=== PATIENT | male | born 1985 | race Caucasian/White ===

== ENCOUNTER 2025-01-01 19:50 | Emergency (ER) | payer BC, SELFPAY ==
[2025-01-01 19:54] VITALS: BP 155/86
[2025-01-01 20:03] VITALS: BP 142/49
[2025-01-01 20:17] LABS: % Basophils 0.8 % (0-2); % Eosinophils 1.5 % (0-6); % Immature Granulocytes 0.2 % (0-0.5); % Monocytes 7.4 % (1.7-9.3); % Neutrophils 57.1 % (42.2-75.2); Absolute Basophils 0.1 10^3/uL (0-0.2); Absolute Eosinophils 0.1 10^3/uL (0-0.7); Absolute Lymphocytes 2.2 10^3/uL (1.2-3.4); Absolute Monocytes 0.5 10^3/uL (0.1-0.6); Absolute Neutrophils 3.7 10^3/uL (1.4-6.5); Hematocrit 39.4 % (39.0-52.0); Hemoglobin 14.1 g/dL (13.0-18.0); Mean Corp Hgb Conc. 35.8 g/dL (33.0-37.0); Mean Corpuscular Hgb 29.5 pg (27.0-31.0); Mean Corpuscular Volume 82.4 fL (80.0-94.0); Mean Platelet Volume 9.8 fL (7.4-10.4); Nucleated Red Blood Cells % 0 % (-); Platelet Count 245 10^3/uL (130-400); Red Blood Cell Count 4.78 10^6/uL (4.70-6.10); Red Cell Dist. Width 11.9 % (11.5-14.5); White Blood Cell Count 6.5 10^3/uL (4.8-10.8)
[2025-01-01 20:49] LABS: ALT (SGPT) 25 U/L (0-50); AST (SGOT) 25 U/L (17-59); Albumin 5.1 g/dl (3.5-5.0); Alkaline Phosphatase 46 U/L (38-126); Blood Urea Nitrogen 18 mg/dl (9-20); Calcium 9.7 mg/dl (8.4-10.2); Carbon Dioxide 25 mmol/L (22-30); Chloride 107 mmol/L (98-107); Glucose 121 mg/dl (70-99); Potassium 3.9 mmol/L (3.5-5.1); Sodium 141 mmol/L (135-145); Total Bilirubin 0.9 mg/dl (0.2-1.3); Total Protein 7.5 g/dl (6.3-8.2); eGFR > 60.00
[2025-01-01 21:00] VITALS: BP 131/65
[2025-01-01 21:01] LABS: Troponin I < 0.012 ng/ml
[2025-01-01 21:42] VITALS: BMI 26.2
--- NOTE | 2025-01-01 21:49 | ED.GENMED ---
History of Present Illness
General
Chief Complaint: Chest Pain
Time Seen by Provider: 01/01/25 20:44
History of Present Illness
History of Present Illness:
Patient is a 39-year-old male with history of hyperlipidemia presenting to the emergency department chest pain. Patient states at 6:30 PM he was cleaning up after dinner when he developed left-sided chest pressure. 15 minutes later started to
radiate down his arm and he had tingling sensation. He then came to the emergency department. Since then the chest pressure has resolved and the tingling has improved. He states that just feels off currently. No shortness of breath. No
hemoptysis leg swelling history of blood clots. No family history of cardiac disease. The pain was not exertional. He states that occasionally he has had chest pressure before but it resolves within 15 to 20 minutes. The chest pressure Profore
has never been exertional. He has never seen cardiology.
Phy Exam
Physical Exam
Physical Exam:
GENERAL: in no acute distress
HEENT: normocephalic, extraocular movements intact, moist oral mucosa
NECK: normal inspection
RESPIRATORY: no respiratory distress, clear to auscultation bilaterally
CARDIOVASCULAR: regular rate and rhythm, 2+ radial pulses bilaterally
ABDOMEN/: soft, non-distended, non-tender to palpation, no rebound or guarding
EXTREMITIES: non-tender, no edema/swelling
NEUROLOGIC: awake and alert, moves all extremities, normal sensation bilateral upper extremities,
SKIN: warm
Scores
Heart Score for Chest Pain Patients
STEMI patient?: Not applicable
Course
Orders/Labs/Results
Orders:
Orders
01/01/25 19:50
Electrocardiogram (*1) Urgent
Reason for Study: Chest Pain
EKG- Treatment ONCE
01/01/25 20:10
Complete Blood Count/With Diff Urgent
Comprehensive Metabolic Panel Urgent
Troponin I Urgent
01/01/25 20:45
EKG- Treatment ONCE
01/01/25 21:52
CR Chest - 2 Views Urgent
Comment:
Reason For Exam: chest pain
01/01/25 23:00
Electrocardiogram (*1) Urgent
Reason for Study: Chest Pain
01/01/25 23:10
Troponin I Urgent
Abnormal Lab Results
01/01/25
20:10
Glucose 121 H mg/dl
(70-99)
Albumin 5.1 H g/dl
(3.5-5.0)
01/01/25 20:10
01/01/25 20:10
Vital Signs
Initial and Last Documented VS:
Initial Vital Signs
Temp Pulse Resp BP Pulse Ox
98.1 F 70 22 155/86 99
01/01/25 19:54 01/01/25 19:54 01/01/25 19:54 01/01/25 19:54 01/01/25 19:54
Last Documented Vital Signs
Temp Pulse Resp BP Pulse Ox
98.1 F 51 14 111/65 94
01/01/25 19:54 01/02/25 00:00 01/02/25 00:00 01/02/25 00:00 01/02/25 00:00
MDM/Problems Addressed
Differential Diagnosis Includes:
Patient is a 39-year-old male with history of hyperlipidemia presenting to the emergency department with chest pressure that radiated down his left arm that is slowly improving. Vitals are unremarkable and exam is reassuring. Differential is broad
consistent with ACS versus costochondritis versus GI. Considered PE though patient is PERC negative. Considered dissection though patient without any back pain no neuro deficits and chest pain has improved. Initial blood work unremarkable. EKG
per my interpretation with isolated lead III inversion and nonspecific lateral changes to the ST segment. Will obtain delta troponin as well as chest x-ray.
*Critical Care Note
Total Time (30-74mins, 75-104mins- exclusive of procedures): Not Applicable
Update Note
Update Note:
Troponin and delta troponin negative. EKG with normalization of the ST segments. He does have a persistently inverted lead III. He remains chest pain-free. Will discharge at this time. Given the EKG changes we will get patient in for chest pain
hotline follow-up.
ED Attending Note
-
Portions of this chart may have been created with voice recognition software.� Occasional wrong word or��sound alike� substitutions may have occurred due to the inherent limitations of voice recognition software.
Discharge Plan
Departure
Patient Disposition: Home (Routine Discharge)
Date of Disposition: 01/02/25
Time of Disposition: 00:05
Patient with high blood pressure during this ER visit?: No
Discharge Problem:
Chest pain
Instructions: Chest Pain CBC Follow Up
Referrals:
Salima Barber MD [Family Provider, Family Practice]
Activity Restrictions/Additional Instructions:
You were evaluated in the Emergency Department today for chest pain. Your evaluation has shown no signs of medical conditions requiring emergent intervention at this time, however we recommend that you follow up with your primary care physician or
your supervisor shuttle preparation as soon as possible for further testing as an outpatient.
Please schedule an appointment for follow up with your primary care physician as soon as possible.
Return to the Emergency Department if you experience worsening or uncontrolled chest pain, shortness of breath, light headedness, feeling faint, nausea, vomiting, or any other concerning symptoms.
Thank you for choosing us for your care.
Interventions
Interventions:
*Risk Screen - Suicide Last Done: 01/01/25 19:54
*General Assessment Last Done: 01/01/25 19:54
*Neglect/Abuse Screening Last Done: 01/01/25 19:54
*ED- Fall Risk Assessment Last Done: 01/01/25 21:17
*ED COVID-19 Vaccine History Last Done: 01/01/25 21:17
ED- Cardiac Assessment Last Done: 01/01/25 21:17
Discharge Date and Time
Print Language: TURKMEN
[2025-01-01 22:00] VITALS: BP 119/66
[2025-01-01 23:00] VITALS: BP 109/67
[2025-01-01 23:41] LABS: Troponin I < 0.012 ng/ml
[2025-01-02] VITALS: BP 111/65
== END 2025-01-02 00:38 | disposition home or self-care (01) ==
LOC: EMR 19:50
PROVIDERS: EMERGENCY PHYSICIAN Student in an Organized Health Care Education/Training Program; FAMILY PHYSICIAN Family Medicine
DX: R07.89 Other chest pain (principal); R20.2 Paresthesia of skin; M79.602 Pain in left arm; E78.5 Hyperlipidemia, unspecified
CPT/HCPCS: 99285; 71046; 80053; 84484; 85025; 93005

== ENCOUNTER 2025-01-06 11:33 | Emergency (ER) | payer BC, SELFPAY ==
[2025-01-06 11:36] VITALS: BP 142/80
[2025-01-06 11:50] VITALS: BMI 25.8
--- NOTE | 2025-01-06 11:51 | EDRN ---
Pt was here on Sat night w/ tightness in his chest and tingling down L arm, feeling it mostrly in lower arm and fingers. Remainder of week w/ tingling though tightness/pressure subsided. About 1.5 hrs stoney 10:30 am pt feeling palpitations/fluttering
and L arm tingling again. Was watching HR increasing and decreasing on apple watch 70-100 bpm but no warning on an arrhythmia.
[2025-01-06 11:53] VITALS: BP 128/63
[2025-01-06 12:00] VITALS: BP 119/58
--- NOTE | 2025-01-06 12:26 | ED.GENMED ---
History of Present Illness
General
Chief Complaint: Heart Rate Problem
Time Seen by Provider: 01/06/25 11:52
History of Present Illness
History of Present Illness:
39-year-old male with history of hyperlipidemia presents the emergency department for evaluation of frequent heart palpitations. He was seen in the emergency department over the weekend for the symptoms with an unremarkable workup. States that
today he had recurrent palpitations that seem to have resolved, has had consistent left arm tingling since the weekend. No fevers or chills. No shortness of breath. Denies illicit substance use.
Review of Systems
Review of Systems
Allergies reviewed?: Yes
All Other Systems: ROS reviewed and negative except as documented in HPI and ROS
Phy Exam
Physical Exam
Physical Exam:
GEN: Well appearing, NAD, WDWN
HEENT: Oral mucosa moist, no scleral icterus
Cardiac: Regular rate and rhythm, no murmurs
Lung: No respiratory distress, no tachypnea, lungs clear to auscultation bilaterally
MSK: No gross deformity or injuries
Skin: Good color, no pallor or jaundice, no rashes
Neuro: AO x3, moves all extremities freely
Psych: Calm, cooperative
Course
Orders/Labs/Results
Orders:
Orders
01/06/25 11:34
EKG [Electrocardiogram (*1)] Urgent
Reason for Study: Palpitations
EKG- Treatment ONCE
01/06/25 12:36
TSH Reflex To Free T4 Urgent
Vital Signs
Initial and Last Documented VS:
Initial Vital Signs
Temp Pulse Resp BP
98.3 F 84 15 142/80
01/06/25 11:36 01/06/25 11:36 01/06/25 11:36 01/06/25 11:36
Last Documented Vital Signs
Temp Pulse Resp BP Pulse Ox
98.3 F 59 13 118/71 96
01/06/25 11:36 01/06/25 13:00 01/06/25 13:00 01/06/25 13:00 01/06/25 13:00
MDM/Problems Addressed
MDM/Problems Addressed:
EKG and telemetry monitoring are unremarkable, no events detected on telemetry. TSH was also normal. 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
beneficial to him
Comment
Comment:
EKG independently interpreted by me shows normal sinus rhythm at a rate of [address] changes concerning for ischemia
*Pulse Oximetry
SaO2: 97
Oxygen Mode of Delivery: Room air
Patient hypoxic: no
*Critical Care Note
Total Time (30-74mins, 75-104mins- exclusive of procedures): Not Applicable
ED Attending Note
-
Portions of this chart may have been created with voice recognition software.� Occasional wrong word or��sound alike� substitutions may have occurred due to the inherent limitations of voice recognition software.
Discharge Plan
Departure
Patient Disposition: Home (Routine Discharge)
Date of Disposition: 01/06/25
Time of Disposition: 13:36
Patient with high blood pressure during this ER visit?: No
Discharge Problem:
Heart palpitations
Instructions: Palpitations (DC)
Referrals:
Salima Barber MD [Family Provider, Family Practice]
Interventions
Interventions:
*Risk Screen - Suicide Last Done: 01/06/25 11:36
*General Assessment Last Done: 01/06/25 11:36
*Neglect/Abuse Screening Last Done: 01/06/25 11:36
*ED- Fall Risk Assessment Last Done: 01/06/25 11:53
*ED COVID-19 Vaccine History Last Done: 01/06/25 11:36
*Nursing Disposition Last Done: 01/06/25 13:45
ED- Cardiac Assessment Last Done: 01/06/25 11:55
ED- Pulmonary Assessment Last Done: 01/06/25 11:55
Discharge Date and Time
Discharge Date/Time: 01/06/25 13:45
Print Language: ROMANSH
[2025-01-06 13:00] VITALS: BP 118/71
[2025-01-06 13:27] LABS: TSH Reflex To Free T4 1.72 uIU/ml (0.47-4.68)
== END 2025-01-06 13:45 | disposition home or self-care (01) ==
LOC: EMR 11:33
PROVIDERS: Physician Assistant; EMERGENCY PHYSICIAN Emergency Medicine; FAMILY PHYSICIAN Family Medicine
DX: R00.2 Palpitations (principal); E78.5 Hyperlipidemia, unspecified
CPT/HCPCS: 99284; 84443; 93005

== ENCOUNTER → 2025-01-11 08:03 | Outpatient (REF) | payer BC, SELFPAY | LOC: HWRCS 08:03 | PROVIDERS: ATTENDING PHYSICIAN Internal Medicine; FAMILY PHYSICIAN Family Medicine | DX: R00.2 Palpitations (principal); R07.89 Other chest pain | CPT/HCPCS: 93306 ==

== ENCOUNTER → 2025-01-26 15:03 | Outpatient (REF) | payer BC, SELFPAY | LOC: RCS 15:03 | PROVIDERS: ATTENDING PHYSICIAN Internal Medicine; FAMILY PHYSICIAN Family Medicine | DX: R00.2 Palpitations (principal); R07.89 Other chest pain | CPT/HCPCS: 93017 ==

== ENCOUNTER → 2025-02-04 10:02 | Outpatient (REF) | payer BC, SELFPAY | LOC: RAD 10:02 | PROVIDERS: ATTENDING PHYSICIAN Internal Medicine; FAMILY PHYSICIAN Family Medicine | DX: R94.39 Abnormal result of other cardiovascular function study (principal); R07.89 Other chest pain | CPT/HCPCS: 75574; Q9967 ==